=== PATIENT | male | born 1980 | race Caucasian/White ===

== ENCOUNTER 2019-11-04 23:53 | Emergency (ER) | payer MEDICAID ==
[~2019-11-04] VITALS: Ht 180.3 cm; Wt 65.0 kg
[2019-11-05] MEDS ORDERED: LIDOCAINE-MPF 1%, 5ML ONE (00:52)
[2019-11-05] MEDS ORDERED: SODIUM CHLORIDE FLUSH 10ML SYR IVF ONE (01:00)
[2019-11-05] MEDS ORDERED: SODIUM CHLORIDE 0.9% 1,000ML IVBOLUS ONE (01:00)
[2019-11-05] MEDS ORDERED: LIDOCAINE 1%-EPI 1:100K, 20ML INFIL ONE (01:00)
[2019-11-05] MEDS ORDERED: CLINDAMYCIN PMX 600MG/50ML 50 ML IVPB ONE (01:00)
[2019-11-05] MEDS ORDERED: MORPHINE SULFATE 4 MG/ML, 1ML IV PRN (01:00)
[2019-11-05] MEDS ORDERED: ACETAMINOPHEN 500 MG TABLET ONE (01:14)
[2019-11-05] MEDS ORDERED: ACETAMINOPHEN 325 MG TABLET ONE (01:16)
[2019-11-05] MEDS ORDERED: ACETAMINOPHEN 325 MG TABLET PO ONE (01:30)
--- NOTE | 2019-11-05 01:31 | NUR ---
THIS PT NARAYANAN S HX OF CELLULITIS FOR WHICH HE'S BEEN HOSPITALIZED. HE NOTICED LEFT LEG ABCESS A COUPLE DAYS AGO. HE PRESENTS TO THE ER [facility] WITH A FEVER. PT WAS AMBULATORY TO ROOM AND HAS BEEN SITTING IN BED, CONNECTED TO BP AND O2 MONITORS. ATTEMPTING FOR IV ACCESS.
[2019-11-05] MEDS ORDERED: CLINDAMYCIN PMX 600MG/50ML 50 ML ONE (01:49)
[2019-11-05] MEDS ORDERED: MORPHINE SULFATE 4 MG/ML, 1ML ONE (01:49)
[2019-11-05] MEDS ORDERED: ONDANSETRON 2MG/ML, 2ML ONE (01:49)
[2019-11-05 02:03] LABS: BASOPHILS # (AUTO) 0.03 x10^3/uL (0-0.1); BASOPHILS % (AUTO) 0 % (0-1); EOSINOPHILS # (AUTO) 0.14 x10^3/uL (0-0.4); EOSINOPHILS % (AUTO) 2 % (1-7); LYMPHOCYTES # (AUTO) 1.09 x10^3/uL (1-3.4); LYMPHOCYTES % (AUTO) 11 % (22-44); MD NO; MEAN CORPUSCULAR HEMOGLOBIN 27.9 pg (27.5-34.5); MEAN CORPUSCULAR HGB CONC 32.9 g/dL (33.2-36.2); MEAN CORPUSCULAR VOLUME 84.9 fL (81-97); MEAN PLATELET VOLUME 8.7 fL (7.4-10.4); MONOCYTES % (AUTO) 11 % (2-9); NEUTROPHILS % (AUTO) 76 % (42-75); PLATELET COUNT 223 x10^3/uL (130-400); RED BLOOD COUNT 4.48 x10^6/uL (4.38-5.82); RED CELL DISTRIBUTION WIDTH 14.3 % (9.4-14.8)
[2019-11-05 02:05] LABS: ALBUMIN 3.3 g/dL (3.4-5.0); ANION GAP 7 mmol/L (5-15); CALCIUM 7.8 mg/dL (8.5-10.1); CHLORIDE 104 mmol/L (98-107); CREATININE 0.66 mg/dL (0.7-1.3)
[2019-11-05 02:41] VITALS: BP 115/71
== END 2019-11-05 03:06 | disposition home or self-care (01) ==
LOC: ED 11-05 03:00
DX: L03.116 Cellulitis of left lower limb (principal); R50.9 Fever, unspecified
CPT/HCPCS: 36415; 80048; 82040; 83605; 84145; 85025; 87040; 96365; 96375; 99284; J2270; J7030

== ENCOUNTER 2020-06-27 19:55 | Emergency (ER) | payer MEDICAID ==
[~2020-06-27] VITALS: Ht 180.3 cm; Wt 72.4 kg
--- NOTE | 2020-06-27 20:21 | NUR ---
PT CAME INTO ED DUE TO RIGHT WRIST AND HAND PAIN/SWELLING/REDNESS. 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 PT REPORTS HE CANT MOVE THAT WRIST/HAND, NO OBVIOUS DEFORMITY NOTED BUT HAND APPEARS SWOLLEN, PT ALSO REPORTS TINGLING IN THAT WRIST. PT PLACED ON SPO2/BP MONITORING, VSS, BED IN LOWEST, CALL LIGHT ON LAP, WCTM.
[2020-06-27 21:22] VITALS: BP 102/58
--- NOTE | 2020-06-27 21:23 | NUR ---
Patient given discharge instructions and they have confirmed that they understand the instructions. Patient ambulatory with steady gait.NAD, DENIES ADDITIONAL QUESTIONS OR NEEDS, NO PERSONAL BELONGINGS LEFT IN ROOM AFTER DC.
== END 2020-06-27 21:24 | disposition home or self-care (01) ==
LOC: ED 20:55
DX: S63.521A Sprain of radiocarpal joint of right wrist, initial encounter (principal); W01.0XXA Fall on same level from slipping, tripping and stumbling without subsequent striking against object, initial encounter; Y93.89 Activity, other specified; Y92.89 Other specified places as the place of occurrence of the external cause; Y99.8 Other external cause status
CPT/HCPCS: 29125; 99283